=== PATIENT | female | born 1990 | race American Indian/Alaskan Native ===

== ENCOUNTER 2021-06-21 13:03 | Emergency (ER) | payer SELFPAY ==
[2021-06-21 13:53] VITALS: BP 148/76
--- NOTE | 2021-06-21 14:23 | Emergency Department Report ---
- General Chief complaint: Skin/Abscess/Foreign Body Stated complaint: SPIDER BITE ON LT SIDE LEG Time Seen by Provider: 06/21/21 13:57 Source: patient Mode of arrival: Ambulatory Limitations: No Limitations - History of Present Illness Initial comments: Patient is a 31-year-old female presents emergency room complaints of a possible spider bite to the left lower leg that occurred 2 nights ago. She did not feel or see anything by her but she states that a small bump came up. She states that this morning when she woke up it began feeling firm and had redness around it. She denies any fever, drainage, vomiting, numbness, weakness. No past medical history. No allergies to medications. Last menstrual cycle 05/27/2021, she denies any possibility of . She states her last tetanus immunization was 4 years ago. - Related Data Previous Rx's Medication Instructions Recorded Last Taken Type Sulfamethoxazole/Trimethoprim 1 each PO BID 7 Days #14 tablet 06/21/21 Unknown Rx [Bactrim DS TAB] Allergies Allergy/AdvReac Type Severity Reaction Status Date / Time No Known Allergies Allergy Verified 06/21/21 13:53 Abscess Boil HPI - HPI Chief Complaint: Skin/Abscess/Foreign Body Stated Complaint: SPIDER BITE ON LT SIDE LEG Time Seen by Provider: 06/21/21 13:57 Home Medications: Previous Rx's Medication Instructions Recorded Last Taken Type Sulfamethoxazole/Trimethoprim 1 each PO BID 7 Days #14 tablet 06/21/21 Unknown Rx [Bactrim DS TAB] Allergies/Adverse Reactions: Allergies Allergy/AdvReac Type Severity Reaction Status Date / Time No Known Allergies Allergy Verified 06/21/21 13:53 ED Review of Systems ROS: Stated complaint: SPIDER BITE ON LT SIDE LEG Other details as noted in HPI Comment: All other systems reviewed and negative ED Past Medical Hx - Medications Home Medications: Home Medications Medication Instructions Recorded Confirmed Last Taken Type Sulfamethoxazole/Trimethoprim 1 each PO BID 7 Days #14 tablet 06/21/21 Unknown Rx [Bactrim DS TAB] ED Physical Exam - General Limitations: No Limitations General appearance: alert, in no apparent distress - Head Head exam: Present: atraumatic, normocephalic - Eye Eye exam: Present: normal appearance - ENT ENT exam: Present: mucous membranes moist - Neurological Exam Neurological exam: Present: alert, oriented X3 - Psychiatric Psychiatric exam: Present: normal affect, normal mood - Skin Skin exam: Present: warm, dry, other (2 mm pustule present to the left lateral lower leg, there is a 3 cm area of surrouding erythema, induration, no central fluctuance, no necrosis, FROM, neurovascularly intact) ED Course Vital Signs 06/21/21 13:52 Temperature 98.9 F Pulse Rate 82 Respiratory 16 Rate Blood Pressure 148/76 [Left] O2 Sat by Pulse 100 Oximetry ED Medical Decision Making - Medical Decision Making Patient is a 31-year-old female presents emergency room complaints of a possible spider bite to the left lower leg that occurred 2 nights ago. She did not feel or see anything by her but she states that a small bump came up. She states that this morning when she woke up it began feeling firm and had redness around it. She denies any fever, drainage, vomiting, numbness, weakness. No past medical history. No allergies to medications. Last menstrual cycle 05/27/2021, she denies any possibility of . She states her last tetanus immunization was 4 years ago. Vitals are stable. On exam:2 mm pustule present to the left lateral lower leg, there is a 3 cm area of surrouding erythema, induration, no central fluctuance, no necrosis, FROM, neurovascularly intact. Examination presents distant with possible spider bite with surrounding cellulitis. There is no drainable abscess or necrosis or crepitus at this time. Patient given prescription for medication. Advised patient Please take medication as prescribed. Please follow-up with your primary care doctor to have area reexamined. Return to emergency room immediately for any new or worsening symptoms including but not limited to worsening swelling, worsening redness, fever, vomiting, chills, etc. Critical care attestation.: If time is entered above; I have spent that time in minutes in the direct care of this critically ill patient, excluding procedure time. ED Disposition Clinical Impression: Cellulitis Qualifiers: Site of cellulitis: extremity Site of cellulitis of extremity: lower extremity Laterality: left Qualified Code(s): L03.116 - Cellulitis of left lower limb Disposition: HOME / SELF CARE / HOMELESS Is pt being admited?: No Does the pt Need Aspirin: No Condition: Stable Instructions: Cellulitis, Adult Additional Instructions: Please take medication as prescribed. Please follow-up with your primary care doctor to have area reexamined. Return to emergency room immediately for any new or worsening symptoms including but not limited to worsening swelling, worsening redness, fever, vomiting, chills, etc. Prescriptions: Sulfamethoxazole/Trimethoprim [Bactrim DS TAB] 1 each PO BID 7 Days #14 tablet Referrals: your, primary care doctor [Other] - 2-3 Days Time of Disposition: 14:22 Print Language: KYRGYZ
== END 2021-06-21 14:41 | disposition home or self-care (01) ==
LOC: ED 13:03
DX: L03.116 Cellulitis of left lower limb (principal); Z53.21 Procedure and treatment not carried out due to patient leaving prior to being seen by health care provider
CPT/HCPCS: 99282

== ENCOUNTER 2021-10-18 09:50 | Emergency (ER) | payer SELFPAY ==
[2021-10-18 10:24] VITALS: BP 133/51
--- NOTE | 2021-10-18 11:52 | Emergency Department Report ---
- General Chief Complaint: Upper Respiratory Infection Stated Complaint: UPPER RESPIRATORY Time Seen by Provider: 10/18/21 11:41 Source: patient Mode of arrival: Ambulatory Limitations: No Limitations - History of Present Illness Initial Comments: 31-year-old female who reports a history of chronic bronchitis and tobacco use presents to the ER today with complaints of URI symptoms. Patient states her symptoms started about 2 days ago. She reports productive cough with yellow sputum, yellow rhinorrhea, nasal congestion, sneezing, difficulty breathing at night from her nose, and wheezing. Patient states that she has not been vaccinated against COVID-19. She denies any apparent ill contacts or recent travel. She states that she does get routine COVID-19 testing at her job once a week and her last test which was last Sunday was negative. She is scheduled for another one tomorrow. MD Complaint: cough, rhinorrhea, nasal congestion -: days(s) (2) - Related Data Previous Rx's Medication Instructions Recorded Last Taken Type Sulfamethoxazole/Trimethoprim 1 each PO BID 7 Days #14 tablet 06/21/21 Unknown Rx [Bactrim DS TAB] Albuterol Mdi (or & Nicu Only) 2 puff IH QID PRN #8.5 gram 10/18/21 Unknown Rx [ProAir HFA Inhaler] Amoxicillin/Potassium Clav 1 each PO Q12HR #14 tab 10/18/21 Unknown Rx [Augmentin 875-125 Tablet] Cetirizine HCl [Zyrtec 10mg tab] 10 mg PO DAILY #30 tab 10/18/21 Unknown Rx Fluticasone [Flonase] 2 spray NS QDAY #1 bottle 10/18/21 Unknown Rx Allergies Allergy/AdvReac Type Severity Reaction Status Date / Time No Known Allergies Allergy Verified 06/21/21 13:53 ED Review of Systems ROS: Stated complaint: UPPER RESPIRATORY Other details as noted in HPI Comment: All other systems reviewed and negative Constitutional: denies: chills, fever Eyes: denies: eye pain, eye discharge, vision change ENT: congestion, other (rhinorrhea ). denies: ear pain, throat pain, dental pain, hearing loss, epistaxis Respiratory: cough. denies: shortness of breath, SOB with exertion, SOB at rest, wheezing Gastrointestinal: denies: abdominal pain, nausea, diarrhea, constipation, hematemesis, melena, hematochezia Genitourinary: denies: urgency, dysuria, frequency, hematuria, discharge, abnormal menses, dyspareunia Musculoskeletal: denies: back pain, joint swelling, arthralgia, myalgia Skin: denies: rash, lesions, change in color, change in hair/nails, pruritus Neurological: denies: headache, weakness, numbness, paresthesias, confusion, abnormal gait, vertigo Psychiatric: denies: anxiety, depression, auditory hallucinations, visual hallucinations, homicidal thoughts Hematological/Lymphatic: denies: easy bleeding, easy bruising, swollen glands ED Past Medical Hx - Medications Home Medications: Home Medications Medication Instructions Recorded Confirmed Last Taken Type Sulfamethoxazole/Trimethoprim 1 each PO BID 7 Days #14 tablet 06/21/21 Unknown Rx [Bactrim DS TAB] Albuterol Mdi (or & Nicu Only) 2 puff IH QID PRN #8.5 gram 10/18/21 Unknown Rx [ProAir HFA Inhaler] Amoxicillin/Potassium Clav 1 each PO Q12HR #14 tab 10/18/21 Unknown Rx [Augmentin 875-125 Tablet] Cetirizine HCl [Zyrtec 10mg tab] 10 mg PO DAILY #30 tab 10/18/21 Unknown Rx Fluticasone [Flonase] 2 spray NS QDAY #1 bottle 10/18/21 Unknown Rx ED Physical Exam - General Limitations: No Limitations General appearance: alert, in no apparent distress - Head Head exam: Present: atraumatic, normocephalic, normal inspection - Eye Eye exam: Present: normal appearance, PERRL, EOMI Pupils: Present: normal accommodation - ENT ENT exam: Present: mucous membranes moist, TM's normal bilaterally, other (left nasal mucosa is swollen; left maxillary sinus tenderness ) - Neck Neck exam: Present: normal inspection - Respiratory Respiratory exam: Present: normal lung sounds bilaterally. Absent: respiratory distress, wheezes, rales, rhonchi, stridor - Cardiovascular Cardiovascular Exam: Present: regular rate, normal rhythm, normal heart sounds - GI/Abdominal GI/Abdominal exam: Present: soft. Absent: distended, tenderness, guarding, rebound - Neurological Exam Neurological exam: Present: alert, oriented X3, CN II-XII intact, normal gait - Psychiatric Psychiatric exam: Present: normal affect, normal mood - Skin Skin exam: Present: intact ED Course Vital Signs 10/18/21 10:21 Temperature 98.7 F Pulse Rate 80 Respiratory 16 Rate Blood Pressure 133/51 [Left] O2 Sat by Pulse 100 Oximetry ED Medical Decision Making - Medical Decision Making 1212: The patient is resting comfortably, is alert and in no distress. The patient has normal mental status and is neurologically intact. The patient appears well and there is no significant dehydration. There is no respiratory distress and no signs of systemic toxicity. The history, exam, diagnostic testing and current condition do not demonstrate an infectious process such as meningitis, severe pneumonia, retropharyngeal abscess, , sepsis or other serious bacterial infection requiring further testing, treatment, consultation or admission at this time. The vital signs have been stable. The patient's condition is stable and appropriate for discharge. The patient will pursue further outpatient evaluation with the primary care physician or other designated or consulting physician as indicated on the discharge instructions. Critical care attestation.: If time is entered above; I have spent that time in minutes in the direct care of this critically ill patient, excluding procedure time. ED Disposition Clinical Impression: Acute bacterial sinusitis, Bronchitis Disposition: HOME / SELF CARE / HOMELESS Is pt being admited?: No Does the pt Need Aspirin: No Condition: Stable Instructions: Sinusitis, Adult, Chronic Bronchitis (ED) Additional Instructions: Recommend that you take the Flonase, Augmentin, and the Zyrtec as prescribed. Use albuterol inhaler as prescribed. Get a Covid test as scheduled tomorrow. Follow-up with your primary care doctor. Return to the ER if your symptoms changes or worsens in any way. Prescriptions: Amoxicillin/Potassium Clav [Augmentin 875-125 Tablet] 1 each PO Q12HR #14 tab Fluticasone [Flonase] 2 spray NS QDAY #1 bottle Albuterol Mdi (or & Nicu Only) [ProAir HFA Inhaler] 2 puff IH QID PRN #8.5 gram PRN Reason: Shortness Of Breath Cetirizine HCl [Zyrtec 10mg tab] 10 mg PO DAILY #30 tab Referrals: WILLIE VALENCIA MD [Staff Physician] - 3-5 Days Forms: Work/School Release Form(ED) Time of Disposition: 12:05
== END 2021-10-18 13:11 | disposition home or self-care (01) ==
LOC: ED 09:50
DX: J01.90 Acute sinusitis, unspecified (principal); B96.89 Other specified bacterial agents as the cause of diseases classified elsewhere; J40 Bronchitis, not specified as acute or chronic
CPT/HCPCS: 99282